=== PATIENT | male | born 1945 | race African-American/Black ===

== ENCOUNTER 2020-11-24 18:40 | Inpatient (IN) | payer MEDICARE, OTHER ==
[~2020-11-24] VITALS: Ht 170.2 cm; Wt 74.4 kg
[2020-11-25] MEDS ORDERED: AMLODIPINE BESY10 MG PO (01:16)
[2020-11-25] MEDS ORDERED: VALSARTAN-HCTZ1 EACH PO (01:17)
[2020-11-25 03:34] LABS: RED BLOOD COUNT 4.33 M/UL (4.20-5.50); WHITE BLOOD COUNT 3.9 K/UL (4.5-11.0)
[2020-11-25 03:57] LABS: BUN/CREATININE RATIO 16 (0-10)
[2020-11-26 04:17] LABS: HEMOGLOBIN 12.3 gm/dl (14.0-17.5); RED BLOOD COUNT 4.03 M/UL (4.20-5.50)
[2020-11-26 04:19] LABS: WHITE BLOOD COUNT 8.6 K/UL (4.5-11.0)
[2020-11-26 04:49] LABS: BUN/CREATININE RATIO 18 (0-10)
[2020-11-27 06:27] LABS: HEMOGLOBIN 13.5 gm/dl (14.0-17.5); WHITE BLOOD COUNT 8.2 K/UL (4.5-11.0)
[2020-11-27 06:30] LABS: RED BLOOD COUNT 4.45 M/UL (4.20-5.50)
[2020-11-27 06:43] LABS: BUN/CREATININE RATIO 17 (0-10)
[2020-11-28 05:27] LABS: BUN/CREATININE RATIO 21 (0-10)
[2020-11-29 05:13] LABS: BUN/CREATININE RATIO 21 (0-10)
[2020-12-01 03:40] LABS: BUN/CREATININE RATIO 20 (0-10)
[2020-12-02 03:42] LABS: BUN/CREATININE RATIO 20 (0-10)
[2020-12-03 06:45] LABS: BUN/CREATININE RATIO 21 (0-10)
[2020-12-04 04:42] LABS: HEMOGLOBIN 12.6 gm/dl (14.0-17.5); RED BLOOD COUNT 4.13 M/UL (4.20-5.50); WHITE BLOOD COUNT 8.8 K/UL (4.5-11.0)
[2020-12-04 05:14] LABS: BUN/CREATININE RATIO 26 (0-10)
[2020-12-05 05:57] LABS: HEMOGLOBIN 12.7 gm/dl (14.0-17.5); RED BLOOD COUNT 4.11 M/UL (4.20-5.50); WHITE BLOOD COUNT 9.5 K/UL (4.5-11.0)
[2020-12-05 06:22] LABS: BUN/CREATININE RATIO 24 (0-10)
[2020-12-07 03:56] LABS: BUN/CREATININE RATIO 25 (0-10)
[2020-12-08 04:27] LABS: BUN/CREATININE RATIO 29 (0-10)
--- NOTE | 2020-12-08 21:45 | NUR ---
2145- SPOKE WITH ALVINO IN PHARMACY TO DOSE LOVENOX PER DR BOLAÑOS ORDER.
[2020-12-10 06:13] LABS: HEMOGLOBIN 13.7 gm/dl (14.0-17.5); RED BLOOD COUNT 4.23 M/UL (4.20-5.50); WHITE BLOOD COUNT 9.4 K/UL (4.5-11.0)
[2020-12-10 06:32] LABS: BUN/CREATININE RATIO 28 (0-10)
--- NOTE | 2020-12-10 14:28 | NUR ---
PATIENT HAD A DYSPNEIC EPISODE THIS AM. TELE CALLED AND THE NURSE RESPONED BY CHECHING THE PATIENT. SOME OTHER ATTEMPTS WERE MADE BY TELE TO CONTACT NURSE FURTHER, WITH NO RESPONSE. NURSES PHONE NEVER RANG AT THE TIME OF THOSE OTHER ATTEMPTS BY TELE. NURSE AND AID WERE ASSISTING PATIENT DURING THE DYSPNEIC EPISODE.
[2020-12-11 06:45] LABS: BUN/CREATININE RATIO 27 (0-10)
[2020-12-12 07:35] LABS: BUN/CREATININE RATIO 28 (0-10)
[2020-12-14 03:40] LABS: HEMOGLOBIN 13.4 gm/dl (14.0-17.5); RED BLOOD COUNT 4.33 M/UL (4.20-5.50); WHITE BLOOD COUNT 7.2 K/UL (4.5-11.0)
[2020-12-14 04:04] LABS: BUN/CREATININE RATIO 20 (0-10)
[2020-12-15 04:58] LABS: BUN/CREATININE RATIO 18 (0-10)
[2020-12-16 03:17] LABS: BUN/CREATININE RATIO 17 (0-10)
[2020-12-16] MEDS ORDERED: VALSARTAN80 MG PO (17:14)
[2020-12-16] MEDS ORDERED: COMBIVENT RESPIM4 GM INH (17:14)
[2020-12-16] MEDS ORDERED: ELIQUIS 5 MG TAB5 MG PO (17:14)
[2020-12-18] MEDS ORDERED: VALSARTAN80 MG PO ×2 (16:00→16:15)
[2020-12-18] MEDS ORDERED: COMBIVENT RESPIM4 GM INH ×2 (16:00→16:15)
[2020-12-18] MEDS ORDERED: ELIQUIS 5 MG TAB5 MG PO ×2 (16:00→16:15)
== END 2020-12-18 19:49 | disposition home health service (06) | DRG 177 ==
LOC: MED SURG 4 11-25 00:59 → PROG CARE 11-25 00:59 → MED SURG 4 11-25 14:30
PROVIDERS: Internal Medicine; ADMIT Internal Medicine
PROC: 8E0ZXY6 Isolation (ICD-10-PCS; principal; 2020-11-25)
PROC: XW033E5 Introduction of Remdesivir Anti-infective into Peripheral Vein, Percutaneous Approach, New Technology Group 5 (ICD-10-PCS; 2020-11-25)
PROC: XW13325 Transfusion of Convalescent Plasma (Nonautologous) into Peripheral Vein, Percutaneous Approach, New Technology Group 5 (ICD-10-PCS; 2020-11-25)
DX: U07.1 COVID-19 (principal); J12.82 Pneumonia due to coronavirus disease 2019; J96.01 Acute respiratory failure with hypoxia; I26.99 Other pulmonary embolism without acute cor pulmonale; N17.9 Acute kidney failure, unspecified; E87.1 Hypo-osmolality and hyponatremia; J84.112 Idiopathic pulmonary fibrosis; E87.6 Hypokalemia; K59.00 Constipation, unspecified; I10 Essential (primary) hypertension; Z82.49 Family history of ischemic heart disease and other diseases of the circulatory system; Z87.891 Personal history of nicotine dependence; Z79.899 Other long term (current) drug therapy
CPT/HCPCS: 36415; 36600; 71045; 80048; 80053; 82436; 82803; 83735; 83935; 84132; 84133; 84300; 85025; 86900; 86901; 86927; 92610; 94640; 94664; 94760; 97116; 97116-GP-CQ; 97161; 97530-GP-CQ; J0696; J1100; J1650; J7030; Q9967